=== PATIENT | female | born 1990 | race Caucasian/White ===

== ENCOUNTER 2016-08-01 05:57 | Inpatient (IN) | payer BC, OTHER ==
[~2016-08-01] VITALS: Ht 170.2 cm; Wt 91.6 kg
[2016-08-01 06:33] LABS: RED BLOOD COUNT 4.23 M/UL (4.00-5.10); WHITE BLOOD COUNT 9.2 K/UL (4.5-11.0)
[2016-08-02 03:39] LABS: HEMOGLOBIN 11.8 gm/dl (12.3-15.3)
[2016-08-03] MEDS ORDERED: IBUPROFEN600 MG PO (09:57)
== END 2016-08-03 18:10 | disposition home or self-care (01) | DRG 766 ==
LOC: OB 05:57
PROVIDERS: ADMIT Obstetrics & Gynecology
PROC: 10D00Z1 Extraction of Products of Conception, Low, Open Approach (ICD-10-PCS; principal; 2016-08-01 21:20)
DX: O62.1 Secondary uterine inertia (principal); Z3A.39 39 weeks gestation of pregnancy; Z37.0 Single live birth; O32.8XX0 Maternal care for other malpresentation of fetus, not applicable or unspecified; O77.0 Labor and delivery complicated by meconium in amniotic fluid
CPT/HCPCS: 36415; 51702; 81001; 82800; 85014; 85018; 85025; C9113; J0690; J1885; J2210; J2274; J2300; J2405; J2590; J2765; J2795; J3430; J7120